=== PATIENT | male | born 1965 | race Caucasian/White ===

== ENCOUNTER 2016-06-18 12:59 | Emergency (ER) | payer OTHER ==
[~2016-06-18] VITALS: Ht 177.8 cm; Wt 83.5 kg
[2016-06-18] MEDS ORDERED: FLUORESCEIN 1MG EYE STRIP. OD ONE (14:15)
[2016-06-18] MEDS ORDERED: TETRACAINE 0.5% OPHTH SOLUTION 4ML BOTTLE. OD ONE (14:30)
[2016-06-18] MEDS ORDERED: ERYTHROMYCIN 0.5% OPHTH OINTMENT 1GM TUBE. ONE (14:56)
[2016-06-18 15:05] VITALS: BP 115/77
[2016-06-18] MEDS ORDERED: ERYTHROMYCIN 0.5% OPHTH OINTMENT 1GM TUBE. OD ONE (15:15)
--- NOTE | 2016-06-18 15:54 | ED.ADGEN ---
Past History Past Medical History: No Pertinent History Past Surgical History: No Surgical History Alcohol Use: None Drug Use: None Adult General HPI HPI Patient is a 51-year-old male presents emergency department complaining of foreign body sensation to the right eye. 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 He has irrigated copiously with continues to feel discomfort in that eye. He denies any visual changes. Review of Systems Review of Systems Constitutional: Denies fever or chills [] Eyes: Denies change in visual acuity, redness, or eye pain [] HENT: Denies nasal congestion or sore throat [] Respiratory: Denies cough or shortness of breath [] Cardiovascular: No additional information not addressed in HPI [] GI: Denies abdominal pain, nausea, vomiting, bloody stools or diarrhea [] : Denies dysuria or hematuria [] Musculoskeletal: Denies back pain or joint pain [] Integument: Denies rash or skin lesions [] Neurologic: Denies headache, focal weakness or sensory changes [] Endocrine: Denies polyuria or polydipsia [] Current Medications Current Medications Current Medications Medications (Trade) Dose Ordered Sig/Chika Start Time Stop Time Status Last Admin Dose Admin Erythromycin (Romycin) 0.5 inch 1X ONCE 06/18/16 15:15 06/18/16 15:16 UNV Fluorescein Sodium (Ful-Rivka 1mg) 1 strip 1X ONCE 06/18/16 14:15 4 14:16 UNV Tetracaine HCl (Tetracaine) 1 drop 1X ONCE 06/18/16 14:15 06/18/16 14:16 UNV Physical Exam Physical Exam Constitutional: Well developed, well nourished, no acute distress, non-toxic appearance. [] HENT: Normocephalic, atraumatic, bilateral external ears normal, oropharynx moist, no oral exudates, nose normal. [] Eyes: PERRLA, EOMI, inspected under a Craig lamp patient does have a corneal abrasion about 7 o'clock position normal formed bodies were appreciated. [] Neck: Normal range of motion, no tenderness, supple, no stridor. [] Extremities: No tenderness, no cyanosis, no clubbing, ROM intact, no edema. [] Neurologic: Alert and oriented X 3, normal motor function, normal sensory function, no focal deficits noted. [] Psychologic: Affect normal, judgement normal, mood normal. [] Current Patient Data Vital Signs Vital Signs Date Time Temp Pulse Resp B/P Pulse Ox O2 Delivery O2 Flow Rate FiO2 06/18/16 14:17 97.5 53 14 98 Room Air EKG EKG [] Radiology/Procedures Radiology/Procedures [] Course & Med Decision Making Course & Med Decision Making Pertinent Labs and Imaging studies reviewed. (See chart for details) Patient was given a prescription for erythromycin ointment. He is also follow- up with his eye doctor within 48-72 hours for continues to have any issues. He will return emergency department sooner she develops new or worsening symptoms. [] Final Impression Final Impression Corneal abrasion [] Problems: Dragon Disclaimer Dragon Disclaimer This electronic medical record was generated, in whole or in part, using a voice recognition dictation system. JONATHAN LOTT MD Jun 18, 2016 15:54
== END 2016-06-18 15:05 | disposition home or self-care (01) ==
LOC: ER 12:59
DX: S05.01XA Injury of conjunctiva and corneal abrasion without foreign body, right eye, initial encounter (principal); X58.XXXA Exposure to other specified factors, initial encounter; Y93.89 Activity, other specified; Y99.8 Other external cause status; Y92.89 Other specified places as the place of occurrence of the external cause
CPT/HCPCS: 99283